=== PATIENT | male | born 1990 | race Caucasian/White ===

== ENCOUNTER 2018-01-02 14:13 | Emergency (ER) | payer BC ==
[2018-01-02 14:22] VITALS: BP 149/91
--- NOTE | 2018-01-02 15:51 | ED Physician Documentation ---
PD HPI BACK PAIN - Stated complaint Stated Complaint: BACK PX - Chief complaint Chief Complaint: Back Pain - History obtained from History obtained from: Patient - History of Present Illness Timing - onset: How many years ago (6), Chronic Timing - duration: Weeks (1) Timing - details: Gradual onset, Still present, Intermittant Pain level max: 8 Pain level now: 5 Location: Right Quality: Pain, Similar to prior episodes Associated symptoms: No: Fever, Weakness, Numbness, Incontinent of urine, Unable to urinate, Hematuria, Incontinent of stool Improves with: Rest, Position Worsened by: Movement Contributing factors: Lifting. 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 He has been off for 3 days and will need a work note.Patient denies any other associated symptoms. Denies any trauma, travel or recent illness. Patient stated he has never had an x-ray done. Review of Systems Ten Systems: 10 systems reviewed and negative Constitutional: denies: Fever GI: reports: Constipation. denies: Abdominal Pain, Nausea, Diarrhea : denies: Dysuria, Frequency, Incontinent, Hematuria Musculoskeletal: reports: Back pain. denies: Neck pain, Extremity pain, Joint pain, Extremity swelling, Joint swelling, Pain with weight bearing Neurologic: denies: Generalized weakness, Focal weakness, Numbness PD PAST MEDICAL HISTORY - Past Surgical History Past Surgical History: Yes HEENT: Tonsil/Adenoidectomy - Present Medications Home Medications: Ambulatory Orders Medication Instructions Recorded Confirmed No Known Home Medications 01/02/18 01/02/18 - Allergies Allergies/Adverse Reactions: Allergies Allergy/AdvReac Type Severity Reaction Status Date / Time No Known Drug Allergies Allergy Verified 01/02/18 14:22 - Social History Does the pt smoke?: Yes Smoking Status: Current some day smoker Does the pt drink ETOH?: Yes Does the pt have substance abuse?: No - Immunizations Immunizations are current?: Yes PD ED PE NORMAL - Vitals Vital signs reviewed: Yes - General General: Alert and oriented X 3, No acute distress, Well developed/nourished - HEENT HEENT: EOMI, Moist mucous membranes, Pharynx benign - Neck Neck: Supple, no meningeal sign - Cardiac Cardiac: RRR, No murmur - Respiratory Respiratory: No respiratory distress, Clear bilaterally - Abdomen Abdomen: Normal bowel sounds, Soft, Non tender, Non distended - Back Back: No CVA TTP, No spinal TTP - Derm Derm: Warm and dry, No rash - Extremities Extremities: No deformity, No tenderness to palpate, Normal ROM s pain, No edema - Neuro Neuro: Alert and oriented X 3, No motor deficit, No sensory deficit - Psych Psych: Normal mood, Normal affect Results - Vitals Vitals: Vital Signs - 24 hr 01/02/18 14:19 Temperature 36.4 C L Heart Rate 85 Respiratory 18 Rate Blood Pressure 149/91 H O2 Saturation 100 Oxygen O2 Source Room air PD MEDICAL DECISION MAKING - ED course Complexity details: reviewed results, re-evaluated patient (Patient sitting in the chair in no acute distress. Inform of x-ray results. He will continue his [id number] Tylenol or Motrin for pain. Patient is requesting to have a work note to return on Friday.), considered differential (Chronic back pain, lumbar strain, arthritis), d/w patient Departure - Departure Disposition: Home, Self Care Clinical Impression: Back pain Qualifiers: Back pain location: low back pain Chronicity: chronic Back pain laterality: unspecified Sciatica presence: without sciatica Qualified Code(s): M54.5 - Low back pain; G89.29 - Other chronic pain Condition: Good Instructions: ED Neck Back Pain General, ANTI-INFLAMMATORY, General Comments: Avoid heavy lifting. Follow-up with your primary doctor for reevaluation and r eferral to a spine doctor and/or pain management. Continue with [id number] Tylenol or Motrin for pain. Forms: Activity restrictions
--- NOTE | 2018-01-02 16:23 | XRAY Report ---
Reason: L-spine pain Procedure Date: 01/02/2018 Accession Number: [id number] / [id number] Procedure: XR - Lumbar Spine 2 View CPT Code: FULL RESULT: EXAM: LUMBOSACRAL SPINE RADIOGRAPHY EXAM DATE: 01/02/2018 04:15 PM. 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 COMPARISONS: None. TECHNIQUE: 2 views. FINDINGS: Alignment: Minimal levoscoliosis. No spondylolisthesis or scoliosis. Bones: Five des-mdh-qbunwxw lumbar vertebral bodies are present. No fractures or bone lesions. Disks: Normal. Disk heights are maintained. Facets: No degenerative changes. Sacroiliac Joints: Unremarkable. Soft Tissues: Normal. The visualized bowel gas pattern is normal. IMPRESSION: Minimal levoscoliosis, otherwise unremarkable lumbar spine radiography. RADIA
== END 2018-01-02 17:35 | disposition home or self-care (01) ==
LOC: ED 14:13
DX: M54.5 Low back pain (principal); G89.29 Other chronic pain; F17.200 Nicotine dependence, unspecified, uncomplicated
CPT/HCPCS: 72100; 99281; 99282

== ENCOUNTER 2018-11-08 19:15 | Emergency (ER) | payer BC ==
[2018-11-08 19:56] LABS: BILIRUBIN,URINE NEGATIVE (NEGATIVE); GLUCOSE, URINE (UA) NEGATIVE (NEGATIVE); KETONES,URINE (UA) 15 mg/dL (NEGATIVE); LEUKOCYTE ESTERASE, URINE NEGATIVE (NEGATIVE); NITRITE,URINE NEGATIVE (NEGATIVE); OCCULT BLOOD,URINE NEGATIVE (NEGATIVE); PH,URINE 5.5 PH (5.0-7.5); PROTEIN,URINE NEGATIVE (NEGATIVE); UROBILINOGEN,URINE 0.2 (NORMAL) E.U./dL (NORMAL)
[2018-11-08 19:58] LABS: CLARITY,URINE CLEAR (CLEAR)
--- NOTE | 2018-11-08 20:10 | ED Physician Documentation ---
PD HPI ABD PAIN - Stated complaint Stated Complaint: WEAK/ABD PX/GALVAN - Chief complaint Chief Complaint: Abd Pain - History obtained from History obtained from: Patient, Family - History of Present Illness Timing - onset: How many months ago (8) Timing - duration: Months (8) Timing - details: Gradual onset Quality: Sharp, Fullness/distended Location: All over / everywhere Associated symptoms: Nausea, Dizzy, Near syncope / syncope, Loss of appetite, Testicular pain. No: Fever, Vomiting, Diarrhea, Constipation, Dysuria, Hematuria Similar symptoms before: Has not had sx before Recently seen: Not recently seen - Additional information Additional information: This is a 27-year-old presents with his mother complaints that he is been "overworked" in his system is just weak. 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 He has not been vomiting. He developed a sore throat about 3 weeks ago and is been coughing bringing up green phlegm over the past 4 days he is continued to work through all of this. He does feel short of breath. He quit smoking over this past week. He denies any fever but has had some chills. Patient complains that his whole body hurts all of his joints. He has had heart palpitations and felt dizzy and has almost passed out but has not lost consciousness. He has burning sometimes with urination and a sharp pain right at the tip of the penis without penile discharge. He denies heartburn but says that he is been very gassy with lots of extra burps and the intensity of the abdominal pain has increased to the point of the past couple of days that he is finally here to be evaluated. It is now constant underlying pain with waxing and waning in severity. He took Tums it did not help at all. He is also taken Advil and been using Mucinex. He denies any joint swelling but has pain in all of his joints. He also just developed pinkeye a couple days ago and has been sick with these flu symptoms and just working through it. He has an appointment at the [facility] but has not yet been seen there. Denies any history of thyroid disorder or diabetes. No family history of any chronic medical conditions. Review of Systems Constitutional: reports: Chills, Fatigue. denies: Fever, Sweats Eyes: reports: Other (Redness and irritation to the right eye) Ears: denies: Ear pain Nose: denies: Congestion Throat: reports: Sore throat Cardiac: reports: Palpitations. denies: Chest pain / pressure Respiratory: reports: Dyspnea, Cough GI: reports: Abdominal Pain, Nausea. denies: Vomiting, Constipation, Diarrhea : reports: Dysuria, Testicular pain. denies: Discharge Skin: reports: Other (Multiple bruises related to his heavy work). denies: Rash Musculoskeletal: reports: Joint pain (Diffuse). denies: Joint swelling Neurologic: reports: Generalized weakness. denies: Syncope, LOC Endocrine: reports: Other (He is not diabetic). denies: Polydypsia Immunocompromised: denies: Immunocompromised PD PAST MEDICAL HISTORY - Past Medical History Past Medical History: No - Past Surgical History Past Surgical History: Yes HEENT: Tonsil/Adenoidectomy - Present Medications Home Medications: Ambulatory Orders Medication Instructions Recorded Confirmed No Known Home Medications 01/02/18 01/02/18 - Allergies Allergies/Adverse Reactions: Allergies Allergy/AdvReac Type Severity Reaction Status Date / Time No Known Drug Allergies Allergy Verified 11/08/18 19:21 - Social History Does the pt smoke?: Yes Smoking Status: Current every day smoker Does the pt drink ETOH?: Yes Does the pt have substance abuse?: No - Immunizations Immunizations are current?: Yes - POLST Patient has POLST: No PD ED PE NORMAL - Vitals Vital signs reviewed: Yes - General General: Alert and oriented X 3, No acute distress, Well developed/nourished, Other (Thin 27-year-old who is wearing a patch over his right eye) - HEENT HEENT: Atraumatic, EOMI, Moist mucous membranes, Other (Conjunctiva the right eye is injected but there is no discharge. Left eye is clear.) - Neck Neck: No adenopathy, Thyroid normal - Cardiac Cardiac: RRR, No murmur, Strong equal pulses - Respiratory Respiratory: No respiratory distress, Clear bilaterally - Abdomen Abdomen: Normal bowel sounds, Soft, No organomegaly, Other (Diffusely tender without guarding or rebound.) - Derm Derm: Normal color, Warm and dry, No rash - Extremities Extremities: No deformity, No tenderness to palpate - Neuro Neuro: Alert and oriented X 3, cruise director 2-12 intact, No motor deficit, No sensory deficit, Normal speech - Psych Psych: Normal mood, Normal affect Results - Vitals Vitals: Vital Signs - 24 hr 11/08/18 11/08/18 11/08/18 19:18 19:19 21:19 Temperature 37.3 C 37.5 C Heart Rate 89 89 76 Respiratory 16 16 17 Rate Blood Pressure 145/86 H 145/86 H 122/70 O2 Saturation 98 98 100 Oxygen O2 Source Room air - Labs Labs: Laboratory Tests 11/08/18 11/08/18 11/08/18 19:42 20:30 20:30 WBC 11.9 H RBC 5.18 Hgb 15.3 Hct 45.9 MCV 88.6 MCH 29.5 MCHC 33.3 RDW 12.1 Plt Count 177 MPV 9.1 Neut # (Auto) 10.3 H Lymph # (Auto) 0.7 L Wetzel # (Auto) 0.7 Eos # (Auto) 0.1 Baso # (Auto) 0.0 Absolute Nucleated RBC 0.00 Nucleated RBC % 0.0 ESR 1 Sodium Potassium Chloride Carbon Dioxide Anion Gap BUN Creatinine Estimated GFR (MDRD) Glucose Calcium Total Bilirubin AST ALT Alkaline Phosphatase C-Reactive Protein Total Protein Albumin Globulin Albumin/Globulin Ratio Lipase TSH Urine Color YELLOW Urine Clarity CLEAR Urine pH 5.5 Ur Specific [place] 1.020 Urine Protein NEGATIVE Urine Glucose (UA) NEGATIVE Urine Ketones 15 H Urine Occult Blood NEGATIVE Urine Nitrite NEGATIVE Urine Bilirubin NEGATIVE Urine Urobilinogen 0.2 (NORMAL) Ur Leukocyte Esterase NEGATIVE Ur Microscopic Review NOT INDICATED Urine Culture Comments NOT INDICATED Infectious Wetzel Assay 11/08/18 11/08/18 11/08/18 20:30 20:30 20:30 WBC RBC Hgb Hct MCV MCH MCHC RDW Plt Count MPV Neut # (Auto) Lymph # (Auto) Wetzel # (Auto) Eos # (Auto) Baso # (Auto) Absolute Nucleated RBC Nucleated RBC % ESR Sodium 138 Potassium 3.6 Chloride 105 Carbon Dioxide 25 Anion Gap 8.0 BUN 18 Creatinine 0.7 Estimated GFR (MDRD) 137 Glucose 99 Calcium 8.9 Total Bilirubin 0.6 AST 18 ALT 19 Alkaline Phosphatase 77 C-Reactive Protein 1.3 H Total Protein 7.0 Albumin 4.3 Globulin 2.7 Albumin/Globulin Ratio 1.6 Lipase 51 TSH 1.52 Urine Color Urine Clarity Urine pH Ur Specific [place] Urine Protein Urine Glucose (UA) Urine Ketones Urine Occult Blood Urine Nitrite Urine Bilirubin Urine Urobilinogen Ur Leukocyte Esterase Ur Microscopic Review Urine Culture Comments Infectious Wetzel Assay NEGATIVE PD MEDICAL DECISION MAKING - ED course Complexity details: reviewed results, re-evaluated patient, d/w patient, d/w family ED course: Patient CRP is mildly elevated. White blood cell count and other chemistries are normal. He is feeling better after dose of Toradol and some IV fluids.. Abdomen is soft. He has a negative mono spot. He denies any risk factors for HIV but as it is on the differential for illness like this he has asked that he be tested. 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 We will start him on anti-inflammatory just taking naproxen [id number] initially. He has a follow-up appointment with a primary care provider this coming week. He does not need antibiotic drops for his conjunctivitis does not appear to be bacterial. He is encouraged to not work such long hours. The patient did admit that he has not had sexual intercourse in several months and is low risk for STD. 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 Try to avoid processed foods. Keep the appointment you have scheduled with primary care provider this week. They will need to check on the HIV test because it will not be done until after tomorrow. Rest as much as possible and try to avoid overworking yourself.
[2018-11-08] MEDS ORDERED: SODIUM CHLORIDE 0.9% 1,000 ML IV ONE (20:15)
[2018-11-08] MEDS ORDERED: KETOROLAC 30 MG/ML VIAL IVP STA (20:15)
[2018-11-08 20:35] LABS: BASOPHILS % (AUTO) 0.3 %; EOSINOPHILS # (AUTO) 0.1 10^3/uL (0.0-0.7); HGB - HEMOGLOBIN 15.3 g/dL (14.0-18.0); LYMPHOCYTES # (AUTO) 0.7 10^3/uL (1.5-3.5); LYMPHOCYTES % (AUTO) 5.7 %; MEAN CORPUSCULAR HEMOGLOBIN 29.5 pg (27.0-31.0); MEAN CORPUSCULAR HGB CONC 33.3 g/dL (32.0-36.0); MEAN CORPUSCULAR VOLUME 88.6 fL (80.0-94.0); MEAN PLATELET VOLUME 9.1 fL (7.4-11.4); MONOCYTES # (AUTO) 0.7 10^3/uL (0.0-1.0); MONOCYTES % (AUTO) 5.6 %; NEUTROPHILS # (AUTO) 10.3 10^3/uL (1.5-6.6); NEUTROPHILS % (AUTO) 86.8 %; PLT - PLATELET COUNT 177 10^3/uL (130-450); RED BLOOD COUNT 5.18 10^6/uL (4.70-6.10); RED CELL DISTRIBUTION WIDTH 12.1 % (12.0-15.0); WHITE BLOOD COUNT 11.9 x10^3/uL (4.8-10.8)
[2018-11-08 20:53] LABS: ALBUMIN 4.3 g/dL (3.2-5.5); ALBUMIN/GLOBULIN RATIO 1.6 (1.0-2.2); BILIRUBIN,TOTAL 0.6 mg/dL (0.2-1.0); CALCIUM 8.9 mg/dL (8.5-10.3); CREATININE 0.7 mg/dL (0.6-1.2); CRP - C-REACTIVE PROTEIN 1.3 mg/dL (0-1.0)
--- NOTE | 2018-11-08 21:16 | XRAY Report ---
Reason: cough Procedure Date: 11/08/2018 Accession Number: [id number] / [id number] Procedure: XR - Chest 2 View X-Ray CPT Code: 40755 FULL RESULT: EXAM: CHEST RADIOGRAPHY EXAM DATE: 11/08/2018 08:43 PM. CLINICAL HISTORY: Cough. COMPARISON: None. TECHNIQUE: 2 views. FINDINGS: Lungs/Pleura: No focal opacities evident. No pleural effusion. No pneumothorax. Normal volumes. Mediastinum: Heart and mediastinal contours are unremarkable. Other: None. IMPRESSION: No acute cardiopulmonary process. RADIA
[2018-11-08 22:56] VITALS: BP 120/72
[2018-11-10 14:01] LABS: HIV AG/AB 4TH GEN NON-REACTIVE (NON-REACTIVE)
== END 2018-11-08 22:54 | disposition home or self-care (01) ==
LOC: ED 19:15
DX: R10.84 Generalized abdominal pain (principal); M02.39 Reiter's disease, multiple sites; H10.9 Unspecified conjunctivitis; Z87.891 Personal history of nicotine dependence
CPT/HCPCS: 36415; 71046; 80053; 81001; 81003; 83690; 84443; 85025; 85651; 86140; 86308; 87086; 87389; 96361; 96374; 99284

== ENCOUNTER 2019-07-09 22:15 | Emergency (ER) | payer BC, MEDICAID ==
--- NOTE | 2019-07-09 22:22 | ED Physician Documentation ---
History of Present Illness - Stated complaint Stated Complaint: LUMP ON THIGH/FOOT PX - History obtained from History obtained from: Patient (28-year-old male who presents with multiple complaints he reports a bump in his right thigh and wants to make sure he does not have a deep vein thrombosis he denies any history of deep vein thrombosis or pulmonary embolism he denies any chest pain or shortness of breath or lower extremity swelling just noticed an area of erythema in his right upper thigh that is pruritic as well as areas on his foot that are pruritic as well he thinks he has a skin infection and is requesting a prescription for antibiotics as well. He has not tried any treatment prior to arrival denies any history of MRSA denies fevers headache neck pain or any syncopal episodes denies any neck pain.) Review of Systems Constitutional: reports: Reviewed and negative Eyes: reports: Reviewed and negative Ears: reports: Reviewed and negative Nose: reports: Reviewed and negative Throat: reports: Reviewed and negative Cardiac: reports: Reviewed and negative Respiratory: reports: Reviewed and negative GI: reports: Reviewed and negative : reports: Reviewed and negative Skin: reports: Rash, Other (Bump in the right thigh) Musculoskeletal: reports: Reviewed and negative Neurologic: reports: Reviewed and negative Psychiatric: reports: Reviewed and negative Endocrine: reports: Reviewed and negative Immunocompromised: reports: Reviewed and negative PD PAST MEDICAL HISTORY - Past Surgical History Past Surgical History: Yes HEENT: Tonsil/Adenoidectomy - Present Medications Home Medications: Ambulatory Orders Medication Instructions Recorded Confirmed Cephalexin [Keflex] 500 mg PO QID 7 Days #28 capsule 07/10/19 Clotrimazole [Clotrimazole AF] 28 gm TP BID #1 cream..g. 07/10/19 - Allergies Allergies/Adverse Reactions: Allergies Allergy/AdvReac Type Severity Reaction Status Date / Time No Known Drug Allergies Allergy Verified 07/09/19 22:25 - Social History Does the pt smoke?: Yes Smoking Status: Current every day smoker Does the pt drink ETOH?: Yes Does the pt have substance abuse?: No - Immunizations Immunizations are current?: Yes - POLST Patient has POLST: No PD ED PE NORMAL - Vitals Vital signs reviewed: Yes - General General: Alert and oriented X 3, No acute distress, Well developed/nourished - HEENT HEENT: Atraumatic, PERRL, Moist mucous membranes - Neck Neck: Supple, no meningeal sign - Cardiac Cardiac: RRR, No murmur, Strong equal pulses - Respiratory Respiratory: No respiratory distress, Clear bilaterally - Abdomen Abdomen: Normal bowel sounds, Soft, Non tender, Non distended, No organomegaly - Back Back: No CVA TTP, No spinal TTP - Derm Derm: Other (There is tissue breakdown in between the toes of the right foot as well as excoriation on the plantar aspect of the foot as well there is diffuse areas of erythema different stages of healing on both the right and left lower extremity there is an area of erythema with central clearing in the right inguinal region there is also a 1 x 1 cm in area of tenderness in the right medial thigh. There is no crepitus) - Extremities Extremities: No deformity, Other (Both lower extremities are neurovascularly intact strength is 5 out of 5 negative Homans sign bilaterally compartments are soft sensations intact light touch no gross deformities.) - Neuro Neuro: Alert and oriented X 3 - Psych Psych: Normal mood, Normal affect Results - Vitals Vitals: Vital Signs - 24 hr 07/09/19 22:22 Temperature 36.8 C Heart Rate 57 L Respiratory 14 Rate Blood Pressure 132/75 H O2 Saturation 97 Oxygen O2 Source Room air PD MEDICAL DECISION MAKING - ED course Complexity details: considered differential (History and exam are consistent with cellulitis as well as tinea pedis and tinea cruris. Patient is concerned he could have a DVT clinically he does not have one I did provide an ultrasound that a Doppler venous ultrasound that was negative for deep vein thrombosis.) Departure - Departure Disposition: 01 Home, Self Care Clinical Impression: Tinea pedis Qualifiers: Laterality: right Qualified Code(s): B35.3 - Tinea pedis Cellulitis Qualifiers: Site of cellulitis: extremity Site of cellulitis of extremity: lower extremity Laterality: right Qualified Code(s): L03.115 - Cellulitis of right lower limb Condition: Stable Instructions: Cellulitis Dc, ED Fungal Infec Athlete Foot Follow-Up: your, doctor [Other] Braden Crowe MD [Provider Admit Priv/Credential] - Tomorrow Prescriptions: Cephalexin [Keflex] 500 mg PO QID 7 Days #28 capsule Clotrimazole [Clotrimazole AF] 28 gm TP BID #1 cream..g. Comments: establish care with a primary care provider. apply clotrimazole to affected area 2 times daily. take antibiotics as directed.
--- NOTE | 2019-07-09 23:55 | Ultrasound Report ---
Reason: right thigh swelling Procedure Date: 07/09/2019 Accession Number: [id number] / [id number] Procedure: US - Duplex Ext Veins Right CPT Code: Final Report FULL RESULT: EXAM: RIGHT LOWER EXTREMITY VENOUS ULTRASOUND EXAM DATE: 07/09/2019 11:42 PM. CLINICAL HISTORY: Right thigh swelling. COMPARISON: None. TECHNIQUE: Real-time sonographic vascular imaging was performed by the medical director through the lower extremity utilizing both color-flow and Doppler spectral analysis. Multiple shared services representative static images were saved for review. FINDINGS: Common Femoral Vein (CFV): Normal. CFV-GSV Junction: Normal. Profunda Femoral Vein (PFV): Normal. Femoral Vein (FV) Prox: Normal. Femoral Vein (FV) Mid: Normal. Femoral Vein (FV) Dist: Normal. Popliteal Vein: Normal. Posterior Tibial Veins: Normal. Peroneal Veins: Normal. Other: In the area of the femoral profunda vessels, there is a subcutaneous prominent lymph node at a palpable abnormality. IMPRESSION: No evidence for deep venous thrombosis. See above. RADIA
[2019-07-10 00:17] VITALS: BP 120/74
== END 2019-07-10 00:17 | disposition home or self-care (01) ==
LOC: ED 22:15
DX: B35.3 Tinea pedis (principal); L03.115 Cellulitis of right lower limb; F17.200 Nicotine dependence, unspecified, uncomplicated
CPT/HCPCS: 99283

== ENCOUNTER 2019-07-15 16:42 | Emergency (ER) | payer MEDICAID ==
[2019-07-15 16:48] VITALS: BP 121/71
[2019-07-15] MEDS ORDERED: predniSONE 20 MG TABLET PO STA (17:21)
--- NOTE | 2019-07-15 17:23 | ED Physician Documentation ---
PD HPI SKIN - Stated complaint Stated Complaint: ALLERGIC REACTION - Chief complaint Chief Complaint: Allergic Rx - History obtained from History obtained from: Patient - History of Present Illness Timing - onset: Other (He started Keflex about 5 or 6 days ago for a skin infection on his leg which is now gone. Over the last 2 days he is developed very itchy bumps on his palms.) Review of Systems Constitutional: denies: Fever, Chills Throat: reports: Reviewed and negative Cardiac: reports: Reviewed and negative Respiratory: reports: Reviewed and negative PD PAST MEDICAL HISTORY - Past Surgical History Past Surgical History: Yes HEENT: Tonsil/Adenoidectomy - Present Medications Home Medications: Ambulatory Orders Medication Instructions Recorded Confirmed Cephalexin [Keflex] 500 mg PO QID 7 Days #28 capsule 07/10/19 Clotrimazole [Clotrimazole AF] 28 gm TP BID #1 cream..g. 07/10/19 predniSONE [Deltasone] 60 mg PO DAILY 5 Days #15 tablet 07/15/19 - Allergies Allergies/Adverse Reactions: Allergies Allergy/AdvReac Type Severity Reaction Status Date / Time No Known Drug Allergies Allergy Verified 07/15/19 16:46 - Social History Does the pt smoke?: Yes Smoking Status: Current every day smoker Does the pt drink ETOH?: Yes Does the pt have substance abuse?: No - Immunizations Immunizations are current?: Yes - POLST Patient has POLST: No PD ED PE NORMAL - Vitals Vital signs reviewed: Yes - General General: Alert and oriented X 3, No acute distress - Extremities Extremities: Other (He has tiny subcutaneous nodules on the palms that are slightly tender. They are not discolored. No limited range of motion.) - Neuro Neuro: Alert and oriented X 3, Normal speech Results - Vitals Vitals: Vital Signs - 24 hr 07/15/19 16:46 Temperature 36.5 C Heart Rate 67 Respiratory 15 Rate Blood Pressure 121/71 O2 Saturation 97 Oxygen O2 Source Room air PD MEDICAL DECISION MAKING - ED course ED course: Timing would suggest that this may be related to the Keflex, could be some sort of dyshidrotic eczema to. That said syphilis is also considered and will be tested for. Departure - Departure Disposition: 01 Home, Self Care Clinical Impression: Allergic reaction Qualifiers: Encounter type: initial encounter Qualified Code(s): T78.40XA - Allergy, unspecified, initial encounter Condition: Good Record reviewed to determine appropriate education?: Yes Instructions: ED Drug React Allergic Prescriptions: predniSONE [Deltasone] 60 mg PO DAILY 5 Days #15 tablet Comments: Stop the antibiotics. Start the steroids, hopefully this will start going away in the next couple of days. Do not take Keflex again. If syphilis testing is positive, which I doubt given what we discussed, we will call you. Return if worse.
== END 2019-07-15 17:30 | disposition home or self-care (01) ==
LOC: ED 16:42
DX: T78.40XA Allergy, unspecified, initial encounter (principal); F17.200 Nicotine dependence, unspecified, uncomplicated
CPT/HCPCS: 36415; 86780; 99283; J7512

== ENCOUNTER 2019-07-27 10:33 | Emergency (ER) | payer MEDICAID ==
[2019-07-27] MEDS: cefTRIAXone 1 GM VIAL IM STA (11:14)
[2019-07-27] MEDS: LIDOCAINE 1% 2 ML VIAL MC ONE (11:15)
--- NOTE | 2019-07-27 11:27 | ED Physician Documentation ---
History of Present Illness - Stated complaint Stated Complaint: R LEG PX - Chief complaint Chief Complaint: Ext Problem - History obtained from History obtained from: Patient, Family - History of Present Illness Timing: How many days ago (3) - Additonal information Additional information: 28-year-old male has had cellulitis in the right lower extremity after an injury to the bottom of his foot. He has been dealing with some athlete's foot associated with this and last month developed cellulitis and was placed on some antibiotic. This improved rapidly and the patient developed an allergic reaction to the Keflex was taken off the Keflex.Symptoms were improved and now he has developed again redness swelling and tenderness along the medial aspect of the right foot extending up into the distal calf. The patient indicates that he has been using some topical antifungal and that his athlete's foot has improved dramatically.This has not resolved and it has been present since March. Review of Systems Constitutional: denies: Fever Eyes: denies: Decreased vision Ears: denies: Ear pain Nose: denies: Congestion Throat: denies: Sore throat Cardiac: denies: Chest pain / pressure, Palpitations Respiratory: denies: Dyspnea, Cough GI: denies: Abdominal Pain, Nausea, Vomiting : denies: Dysuria, Frequency Skin: reports: Rash (to the bottom of the foot) Musculoskeletal: reports: Extremity pain, Extremity swelling, Pain with weight bearing Neurologic: denies: Generalized weakness, Focal weakness, Numbness PD PAST MEDICAL HISTORY - Past Surgical History Past Surgical History: Yes HEENT: Tonsil/Adenoidectomy - Present Medications Home Medications: Ambulatory Orders Medication Instructions Recorded Confirmed Cephalexin [Keflex] 500 mg PO QID 7 Days #28 capsule 07/10/19 Clotrimazole [Clotrimazole AF] 28 gm TP BID #1 cream..g. 07/10/19 predniSONE [Deltasone] 60 mg PO DAILY 5 Days #15 tablet 07/15/19 Cefdinir 300 mg PO BID #14 capsule 07/27/19 Terbinafine [Lamisil] 250 mg PO DAILY #14 tablet 07/27/19 - Allergies Allergies/Adverse Reactions: Allergies Allergy/AdvReac Type Severity Reaction Status Date / Time cephalexin [From Keflex] Allergy Unknown Verified 07/27/19 10:46 - Social History Does the pt smoke?: Yes Smoking Status: Current every day smoker Does the pt drink ETOH?: Yes Does the pt have substance abuse?: No - Immunizations Immunizations are current?: Yes - POLST Patient has POLST: No PD ED PE NORMAL - Vitals Vital signs reviewed: Yes (hypertensive ) - General General: Alert and oriented X 3, No acute distress, Well developed/nourished - HEENT HEENT: Atraumatic, PERRL, EOMI - Neck Neck: Supple, no meningeal sign, No bony TTP - Respiratory Respiratory: No respiratory distress - Derm Derm: Normal color, Warm and dry - Extremities Extremities: No deformity, No edema, Other (To the sole of the right foot there is thickened lichenified skin some desquamated consistent with athlete's foot. From the medial aspect of the distal foot there is erythema and swelling that extends across the top of the foot and up the side of the calf medially this extends to the distal one third of the calf. The area was mildly tender it does look like lymphangitic streaking. There is no tenderness to the right inguinal area. The picture is consistent with athletes foot responding to treatment and acute cellulitis.) Results - Vitals Vitals: Vital Signs - 24 hr 07/27/19 10:38 Temperature 37.0 C Heart Rate 63 Respiratory 16 Rate Blood Pressure 135/87 H O2 Saturation 99 Oxygen O2 Source Room air PD MEDICAL DECISION MAKING - ED course Complexity details: reviewed old records, considered differential, d/w patient, d/w family ED course: 28-year-old male with recurrence of cellulitis in the right foot has athlete's foot on that side as well and this has been responding slowly to topical treatment.The patient is administered Rocephin 1 g IM and he has an allergy to Keflex. We will start him on some Cefdinir and add treatment with oral terbinifine. Departure - Departure Disposition: 01 Home, Self Care Clinical Impression: Tinea pedis Qualifiers: Laterality: right Qualified Code(s): B35.3 - Tinea pedis Cellulitis Qualifiers: Site of cellulitis: extremity Site of cellulitis of extremity: lower extremity Laterality: right Qualified Code(s): L03.115 - Cellulitis of right lower limb Condition: Stable Instructions: ED Infec Skin Cellulitis, ED Fungal Infec Athlete Foot Follow-Up: [facility] [Provider Group] Prescriptions: Cefdinir 300 mg PO BID #14 capsule Terbinafine [Lamisil] 250 mg PO DAILY #14 tablet
[2019-07-27 11:44] VITALS: BP 121/76
== END 2019-07-27 11:44 | disposition home or self-care (01) ==
LOC: ED 10:33
DX: L03.115 Cellulitis of right lower limb (principal); B35.3 Tinea pedis; Z88.1 Allergy status to other antibiotic agents; F17.200 Nicotine dependence, unspecified, uncomplicated
CPT/HCPCS: 96372; 99283; 99284

== ENCOUNTER 2020-09-05 08:56 | Emergency (ER) | payer MEDICAID ==
--- NOTE | 2020-09-05 09:28 | ED Physician Documentation ---
PD HPI BACK PAIN - Stated complaint Stated Complaint: BACK PX - Chief complaint Chief Complaint: Back Pain - History obtained from History obtained from: Patient - History of Present Illness Timing - onset: How many days ago (3) Timing - duration: Days (3) Timing - details: Gradual onset, Still present Location: Lower Quality: Pain, Spasm Associated symptoms: No: Fever, Weakness, Numbness, Incontinent of urine Worsened by: Movement Contributing factors: Lifting, Twisting Similar symptoms before: No diagnosis (intermittent low back pains; not consistent/frequent.) Recently seen: Not recently seen Review of Systems Constitutional: denies: Fever, Chills Skin: denies: Rash, Lesions Neurologic: denies: Focal weakness, Numbness PD PAST MEDICAL HISTORY - Past Medical History Past Medical History: No Respiratory: None Neuro: None Endocrine/Autoimmune: None Musculoskeletal: None - Past Surgical History Past Surgical History: Yes HEENT: Tonsil/Adenoidectomy - Present Medications Home Medications: Ambulatory Orders Medication Instructions Recorded Confirmed HYDROcod/ACETAM 5/325 [[place] 5/325] 1 ea PO Q6H PRN #15 tablet 09/05/20 dexAMETHasone [Decadron] 4 mg PO DAILY #5 tablet 09/05/20 methocarbamoL [Robaxin] 500 mg PO Q6H PRN #30 tablet 09/05/20 - Allergies Allergies/Adverse Reactions: Allergies Allergy/AdvReac Type Severity Reaction Status Date / Time cephalexin [From Keflex] Allergy Unknown Verified 09/05/20 09:07 - Social History Does the pt smoke?: Yes Smoking Status: Current some day smoker Does the pt drink ETOH?: Yes Does the pt have substance abuse?: Yes Substance Use and Type: CBD oil / Products - Immunizations Immunizations are current?: Yes - POLST Patient has POLST: No PD ED PE NORMAL - Vitals Vital signs reviewed: Yes - General General: Alert and oriented X 3, No acute distress (some guarded ROM of the low back. ), Well developed/nourished - Abdomen Abdomen: Soft, Non tender - Back Back: No CVA TTP, No spinal TTP (but tender lateral muscles.) - Derm Derm: Normal color, Warm and dry, No rash - Neuro Neuro: Alert and oriented X 3, No motor deficit, No sensory deficit, Other (normal knee reflexes) Results - Vitals Vitals: Oxygen O2 Source Room air PD MEDICAL DECISION MAKING - ED course Complexity details: considered differential (no neuro symptoms nor red flags to suggest need for testing.), d/w patient Departure - Departure Disposition: 01 Home, Self Care Clinical Impression: Acute lumbar myofascial strain Qualifiers: Encounter type: initial encounter Qualified Code(s): S39.012A - Strain of muscle, fascia and tendon of lower back, initial encounter Condition: Stable Record reviewed to determine appropriate education?: Yes Instructions: ED Sprain Strain Lumbar Prescriptions: dexAMETHasone [Decadron] 4 mg PO DAILY #5 tablet HYDROcod/ACETAM 5/325 [[place] 5/325] 1 ea PO Q6H PRN #15 tablet PRN Reason: Pain methocarbamoL [Robaxin] 500 mg PO Q6H PRN #30 tablet PRN Reason: Spasms Comments: Heat and gentle stretching for the low back to reduce spasming and stiffness. Decadron steroid anti-inflammatory daily for 5 more days. Tylenol 500 mg 4 times a day. Add hydrocodone with acetaminophen every 4-6 hours if needed for worse pain. Methocarbamol muscle relaxant 3 times a day for spasms and stiffness. Low back pain episodes are fairly common. See if this resolves over the next several days to week. Recheck if persistent or worsening symptoms. My narcotic instructions I am prescribing a short course of narcotic pain medication for you. These are potentially dangerous and addictive medications that should be used carefully. These medications may constipate you. Take an [id number] stool softener such as docusate twice daily with plenty of water while taking these medications. If you go 24 hours without a bowel movement, take [id number] MiraLAX, per package instructions. Do not drink or drive while taking these medications. If you received narcotic or sedating medications while in the emergency department do not drive for 24 hours. Store this medication in a safe, secure place and out of reach of children. It is a violation of federal law to give or sell this medication to another person or to use in a manner other than prescribed. The ED will not refill narcotic prescriptions, including prescriptions lost or stolen. You can dispose of unwanted medications at the [facility]'s office or at several pharmacies such as [facility]. Discharge Date/Time: 09/05/20 10:27
[2020-09-05] MEDS ORDERED: CHERRY SYRUP 10 ML UDC PO ONE (10:00)
[2020-09-05] MEDS ORDERED: ACETAMINOPHEN 325 MG TABLET PO STA (10:00)
[2020-09-05] MEDS ORDERED: methocarbamoL 500 MG TABLET PO STA (10:00)
[2020-09-05] MEDS ORDERED: DEXAMETHASONE 10 MG/ML VIAL PO STA (10:00)
[2020-09-05 10:20] VITALS: BP 125/74
== END 2020-09-05 10:27 | disposition home or self-care (01) ==
LOC: ED 08:56
DX: S39.012A Strain of muscle, fascia and tendon of lower back, initial encounter (principal); X50.0XXA Overexertion from strenuous movement or load, initial encounter; Y93.E6 Activity, residential relocation; F17.200 Nicotine dependence, unspecified, uncomplicated
CPT/HCPCS: 99283; 99284; A9270